=== PATIENT | male | born 1955 | race Caucasian/White ===

== ENCOUNTER 2017-04-30 10:43 | Emergency (ER) | payer MEDICAID, SELFPAY ==
[2017-04-30 10:51] VITALS: BP 158/104; PULSE 129; RESP 20; TEMP 36.5; O2SAT 97; BMI 28.8
--- NOTE | 2017-04-30 12:44 | HMH.EDWEAK ---
ED Disposition Clinical Impression: Neurasthenia, Nausea Disposition: Home, Self-Care Condition on Discharge: Good Prescriptions: Ondansetron [Zofran 8mg ODT] 8 mg PO TID PRN #14 tab PRN Reason: Nausea Referrals: Tessa Henriquez MD [Primary Care Provider] - - Critical Care Critical Care Time: No Attestation: On 04/30/17, the high probability of a clinically significant, sudden or life threatening deterioration of the following system(s) required my full and direct attention, intervention and personal management. The time I documented below is in addition to time spent performing reported procedures but includes the following listed in this critical care notation. Medical Decision Making Vital Signs: 04/30/17 10:51 Temperature 97.7 F Temperature Source Oral Pulse Rate [Right Brachial] 129 H Respiratory Rate 20 Blood Pressure [Right Arm] 158/104 Blood Pressure Mean [Right Arm] 122 Blood Pressure Source [Right Arm] Automatic Cuff Blood Pressure Position [Right Arm] Sitting 02 Sat by Pulse Oximetry 97 Oxygen Delivery Method Room Air Orders (Tests/Meds): ED MEDICATIONS Discontinued Medications Generic Name Dose Route Start Last Admin Trade Name Freq PRN Reason Stop Dose Admin Ondansetron HCl 8 mg 04/30/17 12:43 04/30/17 13:22 Zofran 4mg/2ml Vial IM 04/30/17 12:44 8 mg ONCE ONE Administration - Anurag Inquiry Pt receiving controlled substance: No Anurag was queried for this patient: No Medical Decision Making Narrative: patient has long history greater than 1 month of same sub acute issue, he needs to see neurology in my opinion, doubt further w/u indicated per ED Weakness HPI - General Chief complaint: Weakness Stated complaint: burning in arms nausea poss high bp Mode of Arrival: Ambulatory Limitations: No Limitations Description of Symptoms (Recalled from ER Triage Doc. by RN): bilateral arm burning with nausea. states all symptoms are intermittent. states this has been. ongoing for two months. generalized weakness. - History of Present Illness MD Complaint: focal weakness (patient has 2 month history of same has seen PCP and found deficient in vitamins b12 and d. Gets vitamin po and Im and feels better for a short time. Now has numbness and burningin arms and nausea.) - Related Data Home Medications Medication Instructions Recorded Confirmed Amlodipine Besylate [Amlodipine 10 mg PO DAILY MDD 7.5mg 04/30/17 04/30/17 10mg Tab] Aspirin [Aspirin 81mg chewable 81 mg PO DAILY 04/30/17 04/30/17 tab] Buspirone HCl 7.5 mg PO DAILY 04/30/17 04/30/17 Previous Rx's Medication Instructions Recorded Ondansetron [Zofran 8mg ODT] 8 mg PO TID PRN #14 tab 04/30/17 Allergies Allergy/AdvReac Type Severity Reaction Status Date / Time lisinopril [LISINOPRIL] Allergy Mild Verified 04/30/17 13:20 amoxicillin [From AMOXIL] Allergy Unknown Verified 04/30/17 13:20 [facility] History Medical History: Denies:: Cancer, Diabetes Mellitus Type 1, Diabetes Mellitus Type 2, MRSA Laterality Cases: Bilateral: Other Amputation: No Fractures: No - *Social History Educational Level: Completed High School Smoking Status: Never smoker Alcohol Intake: never - Psychiatric History Expresses thoughts of harming self/others: None Suicide Plan Description: No Plan Review of Systems - Review of Systems Review of systems:: pertinent systems reviewed and negative unless documented below - *Neurologic Reports numbness, Reports tingling/numbness/burning sensations Physical Exam - General General appearance: alert, in no apparent distress - Head Head exam: atraumatic, normocephalic, normal inspection - Eye Eye exam: Present: normal appearance, PERRL, EOMI - ENT ENT exam: Present: normal exam, normal oropharynx, mucous membranes moist, TM's normal bilaterally, normal external ear exam - Neck Neck exam: Present: normal inspection, full ROM, trachea mid
--- NOTE | 2017-04-30 12:47 | ED_ITS ---
ED Disposition Clinical Impression: Neurasthenia, Nausea Disposition: Home, Self-Care Condition on Discharge: Good Prescriptions: Ondansetron [Zofran 8mg ODT] 8 mg PO TID PRN #14 tab PRN Reason: Nausea Referrals: Tessa Henriquez MD [Primary Care Provider] - - Critical Care Critical Care Time: No Attestation: On 04/30/17, the high probability of a clinically significant, sudden or life threatening deterioration of the following system(s) required my full and direct attention, intervention and personal management. The time I documented below is in addition to time spent performing reported procedures but includes the following listed in this critical care notation. Medical Decision Making Vital Signs: 04/30/17 10:51 Temperature 97.7 F Temperature Source Oral Pulse Rate [Right Brachial] 129 H Respiratory Rate 20 Blood Pressure [Right Arm] 158/104 Blood Pressure Mean [Right Arm] 122 Blood Pressure Source [Right Arm] Automatic Cuff Blood Pressure Position [Right Arm] Sitting 02 Sat by Pulse Oximetry 97 Oxygen Delivery Method Room Air Orders (Tests/Meds): ED MEDICATIONS Discontinued Medications Generic Name Dose Route Start Last Admin Trade Name Freq PRN Reason Stop Dose Admin Ondansetron HCl 8 mg 04/30/17 12:43 04/30/17 13:22 Zofran 4mg/2ml Vial IM 04/30/17 12:44 8 mg ONCE ONE Administration - Anurag Inquiry Pt receiving controlled substance: No Anurag was queried for this patient: No Medical Decision Making Narrative: patient has long history greater than 1 month of same sub acute issue, he needs to see neurology in my opinion, doubt further w/u indicated per ED Weakness HPI - General Chief complaint: Weakness Stated complaint: burning in arms nausea poss high bp Mode of Arrival: Ambulatory Limitations: No Limitations Description of Symptoms (Recalled from ER Triage Doc. by RN): bilateral arm burning with nausea. states all symptoms are intermittent. states this has been. ongoing for two months. generalized weakness. - History of Present Illness MD Complaint: focal weakness (patient has 2 month history of same has seen PCP and found deficient in vitamins b12 and d. Gets vitamin po and Im and feels better for a short time. Now has numbness and burningin arms and nausea.) - Related Data Home Medications Medication Instructions Recorded Confirmed Amlodipine Besylate [Amlodipine 10 mg PO DAILY MDD 7.5mg 04/30/17 04/30/17 10mg Tab] Aspirin [Aspirin 81mg chewable 81 mg PO DAILY 04/30/17 04/30/17 tab] Buspirone HCl 7.5 mg PO DAILY 04/30/17 04/30/17 Previous Rx's Medication Instructions Recorded Ondansetron [Zofran 8mg ODT] 8 mg PO TID PRN #14 tab 04/30/17 Allergies Allergy/AdvReac Type Severity Reaction Status Date / Time lisinopril [LISINOPRIL] Allergy Mild Verified 04/30/17 13:20 amoxicillin [From AMOXIL] Allergy Unknown Verified 04/30/17 13:20 [facility] History Medical History: Denies:: Cancer, Diabetes Mellitus Type 1, Diabetes Mellitus Type 2, MRSA Laterality Cases: Bilateral: Other Amputation: No Fractures: No - *Social History Educational Level: Completed High School Smoking Status: Never smoker Alcohol Intake: never -
[2017-04-30 14:28] VITALS: BP 140/87; PULSE 102; RESP 16; O2SAT 98
== END 2017-04-30 14:28 | disposition home or self-care (01) ==
PROVIDERS: Emergency Provider Family Medicine; Family Provider Family Medicine; PCP Family Medicine
DX: F48.8 Other specified nonpsychotic mental disorders (principal)
CPT/HCPCS: 96372; 99282; 99283; J2405

== ENCOUNTER → 2017-09-06 10:10 | Outpatient (CLI) | payer MEDICAID, SELFPAY ==
[2017-09-06 11:00] LABS: Basophils % 0.1 % (0.1-2.0); Eosinophils % 0.1 % (0.1-12.0); Hematocrit 41.6 % (42.0-52.0); Hemoglobin 14.1 g/dL (14.1-18.0); Lymphocytes # 2.5 K/mm3 (0.7-4.5); Lymphocytes % 18.6 K/mm3 (10-50); Mean Corpuscular HGB Conc 33.8 g/dL (31.8-35.4); Mean Corpuscular Hemoglobin 29.8 pg (27.0-31.2); Mean Corpuscular Volume 88.3 fl (80-94); Monocytes # 0.6 K/mm3 (0.1-1.0); Monocytes % 4.8 % (1.7-9.3); Neutrophils # 10.2 K/mm3 (1.8-7.8); Neutrophils % 76.5 % (37.0-80.0); Platelet Count 239 K/mm3 (142-424); Red Blood Count 4.72 M/mm3 (4.60-6.20); Red Cell Distribution Width 13.9 % (11.5-17.5); White Blood Count 13.4 K/mm3 (4.8-10.8)
[2017-09-06 12:40] LABS: Alanine Aminotransferase 32 U/L (12-78); Albumin Level 4.3 gm/dL (3.4-5.0); Alkaline Phosphatase 84 U/L (46-116); Aspartate Amino Transferase 19 U/L (15-37); Bilirubin,Direct 0.2 mg/dL (0.0-0.2); Bilirubin,Indirect 0.3 mg/dL (0.0-0.9); Bilirubin,Total 0.5 mg/dL (0.2-1.0); Total Protein,Serum 7.6 gm/dL (6.4-8.2)
[2017-09-11 15:14] LABS: Testosterone, Total, LC/MS 226.3 ng/dL (264.0-916.0)
== END ==
PROVIDERS: Visit Provider Urology
DX: E29.1 Testicular hypofunction (principal)
CPT/HCPCS: 36415; 80076; 84402; 85025

== ENCOUNTER 2019-11-14 14:25 | Emergency (ER) | payer OTHER, SELFPAY ==
[2019-11-14 14:26] VITALS: BP 156/91; PULSE 78; RESP 18; TEMP 36.8; O2SAT 97; BMI 28.0
--- NOTE | 2019-11-14 14:36 | CT_ITS ---
PROCEDURE: CT ABDOMEN PELVIS WO CON CLINICAL INDICATION: FLANK PAIN Left lower quadrant pain, recently passed kidney stones COMPARISON: ABDPELW/O CT ABD PELVIS W/O CONTRAST from 02/05/2013 TECHNIQUE: Axial images obtained with sagittal and coronal reformats. All CT scans at the facility use one or more dose reduction, viz: automated exposure control, ma/kV adjustment per patient size (including targeted exams where dose is matched to indication, i.e. head), or iterative reconstruction technique. FINDINGS: LOWER THORAX: There are some atelectatic/fibrotic changes in the lung bases. 6 mm nodular opacity is present in the right lung base posteriorly nonspecific. There are coronary artery calcifications noted. ABDOMEN & PELVIS: The liver, gallbladder, spleen, adrenal glands, and pancreas have an unremarkable unenhanced appearance. There are numerous bilateral renal calculi measuring up to 5 mm in the mid polar region on the right and 4 mm in the mid polar region on the left. 12 mm hypodensity right kidney which may be due to a cyst and could be confirmed with ultrasound. 2 cm hypodensity involves the mid aspect of the left kidney. There is mild left hydronephrosis and hydroureter secondary to a 4 mm stone at the ureterovesical junction. There is mild thickening of the urinary bladder possibly due to nondistention. No intestinal obstruction or free air. No evidence of appendicitis or diverticulitis. Prostate gland is slightly enlarged measuring 4.6 cm with some coarse calcification. No acute bony anomalies. IMPRESSION: 1. 4 mm left ureterovesical junction stone with mild left-sided obstructive uropathy. 2. Bilateral nephrolithiasis. 3. Bilateral hypodensities of the kidneys suggesting renal cysts which could be confirmed with ultrasound. Dictated by: Clarence Zamorano MD 11/14/2019 15:07 Electronically signed by Clarence Zamorano MD in [place] 11/14/2019 15:07
[2019-11-14 14:45] LABS: Basophils % 0.4 % (0.1-2.0); Eosinophils # 0.1 K/mm3 (0.0-0.4); Hematocrit 43.5 % (42.0-52.0); Hemoglobin 15.6 g/dL (14.1-18.0); Lymphocytes # 2.8 K/mm3 (0.7-4.5); Lymphocytes % 34.3 % (10-50); Mean Corpuscular HGB Conc 35.9 g/dL (31.8-35.4); Mean Corpuscular Hemoglobin 30.6 pg (27.0-31.2); Mean Corpuscular Volume 85.4 fl (80-94); Monocytes # 0.3 K/mm3 (0.1-1.0); Monocytes % 3.7 % (1.7-9.3); Neutrophils # 4.9 K/mm3 (1.8-7.8); Neutrophils % 60.6 % (37.0-80.0); Platelet Count 201 K/mm3 (142-424); Red Cell Distribution Width 13.7 % (11.5-17.5); White Blood Count 8.1 K/mm3 (4.8-10.8)
[2019-11-14 14:47] LABS: Microscopic, Urine URINE MICROSCOPIC (MICROSCOPIC)
[2019-11-14 14:50] LABS: Alanine Aminotransferase 27 U/L (12-78); Albumin Level 4.9 g/dl (3.5-5.0); Albumin/Globulin Ratio 1.6 (1.1-1.8); Alkaline Phosphatase 98 U/L (38-126); Anion Gap 14.3 mEq/L (5-15); Aspartate Amino Transferase 34 U/L (17-59); Bilirubin,Total 0.7 mg/dl (0.2-1.3); Blood Urea Nitrogen 13 mg/dl (9-20); Carbon Dioxide 27 mmol/L (22.0-30.0); Chloride 102 mmol/L (98-107); Creatinine Clearance Estimated 71 mL/min (50-200); Estimated Glomerular Filt Rate 56 ml/min (>60); GFR (African American) 67 ML/MIN (>60); Globulin 3.1 g/dL (1.3-3.2); Glucose 156 mg/dl (74-100); Lipase 102 U/L (23-300); Potassium 4.3 mmoL/L (3.5-5.1); Sodium 139 mmol/L (136-145)
[2019-11-14 14:51] LABS: Appearance,Urine CLEAR (Clear); Bilirubin,Urine Negative (Negative); Blood, Urine 3+ (Negative); Color,Urine YELLOW (Yellow); Glucose,Urine (UA) Negative (Negative); Ketones,Urine Negative (Negative); Leukocyte Esterase,Urine Negative (Negative); Nitrate,Urine Negative (Negative); Protein,Urine Negative (Negative); Specific Gravity, Urine 1.025 (1.005-1.030); Urobilinogen,Urine 0.2 EU/dl (0.2)
[2019-11-14 14:55] LABS: RBC,Urine 20-50 #/hpf (0-3); Squamous Epithelial Cell,Urine Occasional #/hpf (0-5)
--- NOTE | 2019-11-14 16:16 | HMH.EDABDPAI ---
ED Disposition Clinical Impression: Calculus of kidney Disposition: Home, Self-Care Condition on Discharge: Good Instructions: DI for Acute Abdomen Referrals: Paula Melendrez APRN [Primary Care Provider] - - Critical Care Critical Care Time: No Attestation: On 11/14/19, the high probability of a clinically significant, sudden or life threatening deterioration of the following system(s) required my full and direct attention, intervention and personal management. The time I documented below is in addition to time spent performing reported procedures but includes the following listed in this critical care notation. Medical Decision Making - Medical Records Medical records reviewed: Yes: I reviewed the patient's medical records. - Anurag Inquiry Pt receiving controlled substance: No Vital Signs: 11/14/19 14:26 Temperature 98.3 F Temperature Source Oral Pulse Rate [Right] 78 Respiratory Rate 18 Blood Pressure [Right Arm] 156/91 H Blood Pressure Mean [Right Arm] 112 02 Sat by Pulse Oximetry 97 Oxygen Delivery Method Room Air - Lab Data Lab results reviewed: Yes: I reviewed the patient's lab results. Lab Results 11/14/19 14:34: WBC 8.1, RBC 5.10, Hgb 15.6, Hct 43.5, MCV 85.4, MCH 30.6, MCHC 35.9 H, RDW 13.7, Plt Count 201, MPV 8.0, Neut % (Auto) 60.6, Lymph % (Auto) 34.3, Burke % (Auto) 3.7, Eos % (Auto) 1.0, Baso % (Auto) 0.4, Neut # (Auto) 4.9, Lymph # (Auto) 2.8, Burke # (Auto) 0.3, Eos # (Auto) 0.1, Baso # (Auto) 0.0 11/14/19 14:34: Sodium 139, Potassium 4.3, Chloride 102, Carbon Dioxide 27, Anion Gap 14.3, BUN 13, Creatinine 1.30 H, Estimated Creat Clear 71, Estimated GFR 56 L, Est GFR ( Amer) 67, Glucose 156 H, Calcium 10.0, Total Bilirubin 0.7, AST 34, ALT 27, Alkaline Phosphatase 98, Total Protein 8.0, Albumin 4.9, Globulin 3.1, Albumin/Globulin Ratio 1.6, Lipase 102 11/14/19 14:43: Urine Color Yellow, Urine Appearance Clear, Urine pH 6.0, Ur Specific [place] 1.025, Urine Protein Negative, Urine Glucose (UA) Negative, Urine Ketones Negative, Urine Blood 3+, Urine Nitrate Negative, Urine Bilirubin Negative, Urine Urobilinogen 0.2, Ur Leukocyte Esterase Negative, Urine RBC 20-50, Urine WBC None, Ur Squamous Epith Cells Occasional, Urine Bacteria None Result diagrams: 11/14/19 14:34 11/14/19 14:34 Orders (Tests/Meds): ED MEDICATIONS Discontinued Medications Generic Name Dose Route Start Last Admin Trade Name Gonzalez PRN Reason Stop Dose Admin Sodium Chloride 1,000 mls @ 999 mls/hr 11/14/19 14:45 11/14/19 14:40 Sod Chlor 0.9% 1000ml Bag IV 11/14/19 15:45 999 mls/hr .Q1H1M DEANGELO Administration Ketorolac Tromethamine 30 mg 11/14/19 14:36 11/14/19 14:40 Toradol 30mg/Ml Vial IV 11/14/19 14:37 30 mg ONCE ONE Administration - CT Data CT Scan: Abdomen, Pelvis Time Received: 16:[address] Reviewed: Yes: I have viewed the radiologist's interpretation Preliminary Findings: Normal/NAD (4 mm stone), Abnormal Abdominal Pain HPI - General Chief Complaint: Abdominal Pain Stated Complaint: possible kidney stone Time Seen by Provider: 11/14/19 16:16 Mode of Arrival: Ambulatory Source of Information: Patient Limitations: No Limitations Description of Symptoms (Recalled from ER Triage Doc. by RN): PATIENTS STATES HE DEVELOPED BURNING/PAINFUL URINATION THIS MORNING APPROX 0730. LEFT SIDED FLANK PAIN THAT RADIATES TO LLQ. DENIES NAUSEA/VOMITING. - History of Present Illness HPI narrative: 64-year-old male presents with right flank pain rating around to the groin that started about 730 this morning. He states that he does have a history of kidney stones. Patient states that the pain progressively got worse until he presented here to the emergency department. Patient does rate his pain 8 out of 10 classifies a sharp tearing sensation. He describes no alleviating factors and exacerbating factors include any sort of movement or even laying still. Patient denies any other symp
--- NOTE | 2019-11-14 16:17 | PC.NURSE ---
Dr Jennifer boone
[2019-11-14 16:47] VITALS: BP 108/60; PULSE 80; RESP 18; TEMP 36.8; O2SAT 98
== END 2019-11-14 17:06 | disposition home or self-care (01) ==
PROVIDERS: Emergency Provider Family Medicine; PCP Nurse Practitioner Family
DX: N20.0 Calculus of kidney (principal); Z87.442 Personal history of urinary calculi; E78.5 Hyperlipidemia, unspecified; I10 Essential (primary) hypertension; Z88.8 Allergy status to other drugs, medicaments and biological substances; Z87.891 Personal history of nicotine dependence
CPT/HCPCS: 74176; 80053; 81001; 83690; 85025; 96365; 96375; 99283

== ENCOUNTER → 2021-05-25 09:39 | Outpatient (CLI) | payer MEDICARE, OTHER, SELFPAY | PROVIDERS: PCP Family Medicine; Visit Provider Surgery | DX: Z01.812 Encounter for preprocedural laboratory examination (principal); Z11.52 Encounter for screening for COVID-19; Z12.11 Encounter for screening for malignant neoplasm of colon | CPT/HCPCS: C9803; U0003; U0005 ==

== ENCOUNTER 2021-05-27 07:17 | Day surgery (SDC) | payer MEDICARE, OTHER, SELFPAY ==
[2021-05-23 13:27] VITALS: BMI 28.3
[2021-05-27 07:28] VITALS: BP 163/103; PULSE 100; RESP 18; TEMP 36.7; O2SAT 98
[2021-05-27 07:42] VITALS: O2SAT 97
--- NOTE | 2021-05-27 07:47 | P.PN_ITS ---
[facility] Anesthesia Checklist - Structural Data Admitted From: Home Planned Operative Procedure/s: colonoscopy Consent for Planned Operative Procedure(s) Verified: Yes - Airway Assessment C-Spine Mobility Assessed: Yes TMJ Mobility Assessed: Yes Dentition: Poor Dentition - Neurological Assessment Level of Consciousness: Awake, Alert, Appropriate - Anesthesia Plan Anesthesia Risk discussed: Yes Anesthesia Plan: Verified ASA Class: II Anesthesia Type: MAC [facility] History I have reviewed the patient's past medical history: Yes Medical History: Reports:: Hypertension Denies:: Cancer, Diabetes Mellitus Type 1, Diabetes Mellitus Type 2, Internal Pacemaker, MRSA, Seizures *Have you ever received a pneumonia vaccine?: No *Have you received a flu vaccine this season?: No Anesthesia experience/problems:: none Laterality Cases: Bilateral: Other Other Surgeries: Yes: Appendectomy, Cardiac Catheterization. No: Pacemaker Amputation: No Fractures: No - *Social History Last grade of school completed: High school graduate Smoking Status: Former smoker Tobacco Type: cigarettes Alcohol Intake: never Substance Use Type: denies use *Occupational Status:: retired *Travel in the last 8 weeks: None Family Hx:: Cancer, Heart Attack
[2021-05-27 08:35] VITALS: BP 89/53; PULSE 71; RESP 18; TEMP 36.1; O2SAT 91
--- NOTE | 2021-05-27 08:36 | P.PCN_ITS ---
- Procedure: Date: 05/27/21 Patient Date of :: 1955 Procedure Performed:: Total colonoscopy with numerous polypectomy using snare Indications:: Patient is a 66-year-old male. He has never had previous colonoscopy. He had some constipation and rectal bleeding. He was referred for colonoscopy. Performing Provider:: Jv Chiu MD Referring Provider:: Sheila Henriquez MD Sedation:: MAC sedation Procedure:: Patient was taken to endoscopy procedure room. He was positioned in lateral decubitus position. Adequate intravenous sedation was achieved with anesthesia titration of propofol. Variable stiffness Olympus colonoscope was inserted via the anus. It was advanced to the cecum. There was some undigested vegetable matter throughout the colon which obscured visualization somewhat but adequate visualization was achieved with irrigation and suctioning. Colonoscope was slowly withdrawn through the colon with careful surveillance. Numerous polyps were encountered of various sizes. There were 3 polyps within the ascending colon removed with cold cutting snare. These varied in size from approximately 6 mm to 1 cm. There is a small cecal polyp removed with cold snare. In the proximal transverse colon there was a adenomatous appearing polyp removed with cold snare. In the transverse colon there was a polyp removed with cold snare. Descending colon there were 4 various sized polyps removed with cold snare. In the rectal polyp there was a relatively large flat irregular polyp measuring up to about 15 mm removed with hot snare polypectomy in its entirety. There was a smaller adenomatous appearing polyp removed with hot snare in the rectum as well. Retroflexion was not performed due to polypectomy performed in the re ctum. Colonoscope was withdrawn. Findings:: He had numerous polyps, total of approximately 12 polyps removed. Varied in size from 4 mm to approximately 15 mm. Largest polyp was in the rectum. These all appeared adenomatous. Recommendations:: Given the suboptimal visualization due to undigested vegetable matter in the colon and due to the number of polyps likely repeat colonoscopy 1 year to ensure complete eradication of polyps. Complications:: None immediately apparent Estimated blood obtained (mL): 4
[2021-05-27 08:45] VITALS: BP 95/66; PULSE 63; RESP 18; O2SAT 94
[2021-05-27 08:55] VITALS: BP 121/70; PULSE 65; RESP 18; O2SAT 99
[2021-05-27 09:05] VITALS: BP 121/81; PULSE 56; RESP 18; O2SAT 99
== END 2021-05-27 09:08 | disposition home or self-care (01) ==
LOC: OUTP 07:18
PROVIDERS: PCP Nurse Practitioner Family; Visit Provider Surgery
PROC: 0DJD8ZZ Inspection of Lower Intestinal Tract, Via Natural or Artificial Opening Endoscopic (ICD-10-PCS; principal; 2021-05-27 08:30)
DX: Z12.11 Encounter for screening for malignant neoplasm of colon (principal); K63.5 Polyp of colon; K62.1 Rectal polyp; I10 Essential (primary) hypertension; E78.5 Hyperlipidemia, unspecified; Z82.3 Family history of stroke; Z80.9 Family history of malignant neoplasm, unspecified; Z87.891 Personal history of nicotine dependence; Z90.49 Acquired absence of other specified parts of digestive tract; Z88.1 Allergy status to other antibiotic agents; Z88.8 Allergy status to other drugs, medicaments and biological substances; Z79.899 Other long term (current) drug therapy
CPT/HCPCS: 45385; 88305

== ENCOUNTER 2023-08-29 13:26 | Emergency (ER) | payer MEDICARE, SELFPAY ==
[2023-08-29 13:50] VITALS: BP 188/92; PULSE 102; RESP 19; TEMP 36.8; O2SAT 98; BMI 28.8
--- NOTE | 2023-08-29 14:24 | ED_ITS ---
Discharge Plan Disposition Patient Disposition: Home, Self-Care Condition: Good Prescriptions Prescriptions: No Action metoprolol succinate 50 mg tablet extended release 24 hr 50 mg PO DAILY amlodipine 5 mg tablet 5 mg PO ONCE buspirone 7.5 mg tablet See Rx Instructions .ROUTE .COMPLEX Qty: 60 2RF Dose Instruction: TAKE ONE TABLET BY MOUTH TWICE DAILY Rx Instructions: TAKE ONE TABLET BY MOUTH TWICE DAILY aspirin 81 MG tablet,chewable 81 mg PO DAILY Referrals Follow up/Referrals: Tessa Henriquez MD [Primary Care Provider] - See instructions Activity Restrictions/Add. Instructions Additional Instructions/Restrictions: use afrin with nose bleed- 2 sprays and pinch nose if continues return follow up with pcp Clinical Impressions Clinical Impression: Bleeding nose Instructions Patient Instructions: DI for Nosebleed Discharge ED Provider: Hardeep ([facility])Ramiro [facility] HPI General Stated complaint: nosebleed Mode of Arrival: Ambulatory Source of Information: Patient, Spouse, Parent(s) and EMS Limitations: No Limitations Time Seen by Provider: 08/29/23 14:24 Description of Symptoms (Recalled from Triage Doc. by RN): Pt's symptoms are 2 seperate episodes of nose bleeds. He stated the first episode was last night. He used nasal spray then 2 hours later had a nose bleed, and then another one today. He denies any trauma to his nose. HEENT Symptoms (Recalled from RN notes): Yes Resp Symptoms (Recalled from RN notes): No Skin Symptoms (Recalled from RN notes): No MS Symptoms (Recalled from RN notes): No Functional Status (Recalled from RN notes): n/a History of Present Illness Provider Complaint: 68 yr old male presents for c/o 2 separate episodes of nose bleeds. He stated the first episode was last night. He used nasal spray then 2 hours later had a nose bleed, and then another one today. He denies any trauma to his nose. pt states he was congested from mowing the yard Related Data Home Medications Medication Instructions Recorded Confirmed aspirin 81 mg chewable tablet 81 mg PO DAILY Blood thinner 04/30/17 08/29/23 amlodipine 5 mg tablet 5 mg PO ONCE bp 09/06/17 08/29/23 metoprolol succinate 50 mg 50 mg PO DAILY bp 07/16/18 08/29/23 tablet,extended release 24 hr Previous Rx's Medication Instructions Recorded buspirone 7.5 mg tablet See Rx Instructions .Route 03/02/23 .COMPLEX #60 tabs Allergies Allergy/AdvReac Type Severity Reaction Status Date / Time bisoprolol Allergy Severe Agitated Verified 08/29/23 14:10 lisinopril [LISINOPRIL] Allergy Mild Verified 08/29/23 14:10 amoxicillin [From AMOXIL] Allergy Unknown Verified 08/29/23 14:10 Worker's Comp Is this a Worker's Comp case?: No [facility] Disclaimer: The information contained in this section may have been updated after the patient was seen, as this information can be updated by other users. Social History , [employer]) Smoking Status: Former smoker tobacco type: cigarettes second hand exposure: No alcohol intake: never substance use type: denies use current occupational status: retired Travel in the last 8 weeks: None caffeine: No ROS Obtained: Yes All systems reviewed & no additional complaints except as documented Constitutional Constitutional: Reports system reviewed and no additional complaints, except as documented Eyes Eyes: Reports system reviewed and no additional complaints, except as documented ENT Ears, Nose, Mouth, and Throat: Reports system reviewed and no additional co mplaints, except as documented, Reports as per HPI, Reports epistaxis, Reports nasal congestion and Reports nasal discharge Cardiovascular Cardiovascular: Reports system reviewed and no additional complaints, except as documented Respiratory Respiratory: Reports system reviewed and no additional complaints, except as documented Gastrointestinal Gastrointestingal: Reports system reviewed and no additional complaints, except as documented Genitourinary Male Genitourinary: Reports system reviewed and no additional complaints, except as documented Musculoskeletal Musculoskeletal: Reports system reviewed and no additional complaints, except as documented Neurologic Neurologic: Reports system reviewed and no additional complaints, except as documented Endocrine Endocrine: Reports system reviewed and no additional complaints, except as documented Allergic/Immunologic Allergic/Immunologic: Reports system reviewed and no additional complaints, except as documented Physical Exam General General appearance: alert and in no apparent distress Head Head exam: atraumatic Eye Eye exam: Present normal appearance and PERRL ENT ENT exam: Present normal exam, normal oropharynx, mucous membranes moist and TM's normal bilaterally Respiratory Respiratory exam: Present normal lung sounds bilaterally Cardiovascular Cardiovascular exam: Present regular rate and normal rhythm Neurological Exam Neurological exam: Present alert and oriented X3 Skin Skin exam: Present warm and intact Medical Decision Making Medical Records Medical records reviewed: Yes I reviewed the patient's medical records. Anurag Inquiry Pt receiving controlled substance: No Anurag was queried for this patient: No Vital Signs: 08/29/23 13:50 Temperature 98.2 F Temperature Source Oral Pulse Rate [Right Radial] 102 H Respiratory Rate 19 Blood Pressure [Right Arm] 188/92 H Blood Pressure Mean [Right Arm] 124 Blood Pressure Source [Right Arm] Automatic Cuff Blood Pressure Position [Right Arm] Sitting 02 Sat by Pulse Oximetry 98 Oxygen Delivery Method Room Air
[2023-08-29] MEDS: OXYMETAZOLINE NASAL SPRAY 0.05% 15ML NS (14:35)
[2023-08-29 14:57] VITALS: BP 188/92; PULSE 102; RESP 19; TEMP 36.8; O2SAT 98
== END 2023-08-29 14:57 | disposition home or self-care (01) ==
PROVIDERS: Emergency Provider Nurse Practitioner Family; PCP Family Medicine
DX: R04.0 Epistaxis (principal)
CPT/HCPCS: 99204; 99212; G0463

== ENCOUNTER 2023-08-31 10:36 | Emergency (ER) | payer MEDICARE, SELFPAY ==
[2023-08-31] VITALS (7 sets, daily range): BP systolic 133–185; BP diastolic 96–117; PULSE 89–133; RESP 15–16; TEMP 36.7; O2SAT 95–98; BMI 28.8
[2023-08-31] MEDS: OXYMETAZOLINE NASAL SPRAY 0.05% 15ML NS (10:47)
--- NOTE | 2023-08-31 11:26 | ED_ITS ---
Discharge Plan Disposition Patient Disposition: Home, Self-Care Condition: Good Prescriptions Prescriptions: New clindamycin HCl 300 mg capsule 300 mg PO Q8H 7 Days Qty: 21 0RF No Action metoprolol succinate 50 mg tablet extended release 24 hr 50 mg PO DAILY amlodipine 5 mg tablet 5 mg PO ONCE buspirone 7.5 mg tablet See Rx Instructions .ROUTE .COMPLEX Qty: 60 2RF Dose Instruction: TAKE ONE TABLET BY MOUTH TWICE DAILY Rx Instructions: TAKE ONE TABLET BY MOUTH TWICE DAILY aspirin 81 MG tablet,chewable 81 mg PO DAILY Referrals Follow up/Referrals: Tessa Henriquez MD [Primary Care Provider] - See instructions Daniel Kearney MD [Physician] - See instructions Activity Restrictions/Add. Instructions Additional Instructions/Restrictions: You were seen in the ED today due to nosebleed. Please contact ENT office for follow-up. Take antibiotics as directed. Return to the ED if symptoms worsen or if new concerning symptoms arise. Thank you. Clinical Impressions Clinical Impression: Epistaxis Instructions Patient Instructions: DI for Nosebleed Discharge ED Provider: Sam Toussaint General Adult HPI General Chief complaint: Epistaxis Stated complaint: nose bleed 3 days Time Seen by Provider: 08/31/23 11:11 Mode of Arrival: Ambulatory Source of Information: Patient Limitations: No Limitations Description of Symptoms (Recalled from ER Triage Doc. by RN): pt reports to ED for nasal bleeding. pt states that bleeding has been intermittent for the past 3 days. pt reports using allergy nasal spray 3 days ago and began to have bleeding. pt reports he did use afrin this morning approx 4 am but no relief. History of Present Illness HPI narrative: Patient is a 68-year-old male with history of HTN who presents due to nosebleed. Patient's neighbor is present to help provide history. Patient reports for the past 3 days he has had intermittent right-sided nosebleed. Patient states he had been using prescription nasal spray and bleeding occurred upon waking up 1 morning. Denies any preceding trauma. States he was seen by urgent care and given Afrin. He followed up with his primary care provider and states he was referred to an ENT doctor however has not established care yet. Patient states he used the Afrin earlier this morning however some hours later, again developed nosebleed prompting his visit today. Patient denies any lightheadedness, dizziness, fatigue, headache, visual changes. Denies any significant history of nosebleeds. Related Data Home Medications Medication Instructions Recorded Confirmed aspirin 81 mg chewable tablet 81 mg PO DAILY Blood thinner 04/30/17 08/29/23 amlodipine 5 mg tablet 5 mg PO ONCE bp 09/06/17 08/29/23 metoprolol succinate 50 mg 50 mg PO DAILY bp 07/16/18 08/29/23 tablet,extended release 24 hr Previous Rx's Medication Instructions Recorded buspirone 7.5 mg tablet See Rx Instructions .Route 03/02/23 .COMPLEX #60 tabs clindamycin HCl 300 mg capsule 300 mg PO Q8H 7 days #21 caps 08/31/23 Allergies Allergy/AdvReac Type Severity Reaction Status Date / Time bisoprolol Allergy Severe Agitated Verified 08/29/23 14:10 lisinopril [LISINOPRIL] Allergy Mild Verified 08/29/23 14:10 amoxicillin [From AMOXIL] Allergy Unknown Verified 08/29/23 14:10 [facility] Disclaimer: The information contained in this section may have been updated after the patient was seen, as this information can be updated by other users. Social History , [employer]) Smoking Status: Never smoker second hand exposure: No alcohol intake: never substance use type: denies use current occupational status: retired Travel in the last 8 weeks: None caffeine: No ROS Obtained: Yes All systems reviewed & no additional complaints except as documented Physical Exam General General appearance: alert and in no apparent distress Head Head exam: atraumatic, normocephalic and normal inspection Eye Eye exam: Present normal appearance, PERRL and EOMI ENT ENT exam: Present normal exam, normal oropharynx, mucous membranes moist, TM's normal bilaterally, normal external ear exam and other (Dried blood in right anterior nare and posterior oropharynx. No active bleeding.) Neck Neck exam: Present normal inspection, full ROM and trachea midline; Absent meningismus or lymphadenopathy Chest Chest inspection: Present normal inspection and symmetric chest wall rise; Absent tenderness Respiratory Respiratory exam: Present normal lung sounds bilaterally; Absent respiratory distress Cardiovascular Cardiovascular exam: Present regular rate and normal rhythm; Absent JVD Abdominal Exam Abdominal exam: Present soft and normal bowel sounds; Absent distention, tenderness or guarding Extremities Exam Extremities exam: Present normal inspection, full ROM and normal capillary refill; Absent calf tenderness Back Exam Back exam: Present normal inspection; Absent tenderness Neurological Exam Neurological exam: Present alert and oriented X3 Psychiatric Psychiatric exam: Present normal affect and normal mood Skin Skin exam: Present warm, dry, intact and normal color Lymphatic Lymphatic Findings: no adenopathy Medical Decision Making Anurag Inquiry Pt receiving controlled substance: No Vital Signs: 08/31/23 10:37 08/31/23 11:00 08/31/23 11:30 Temperature 98.0 F Temperature Source Oral Pulse Rate 116 H 114 H Pulse Rate [Left Radial] 133 H Respiratory Rate 15 Blood Pressure 136/96 H 163/117 H Blood Pressure [Right Arm] 185/107 H Blood Pressure Mean 109 128 Blood Pressure Mean [Right Arm] 133 Blood Pressure Source Blood Pressure Position 02 Sat by Pulse Oximetry 98 96 96 Oxygen Delivery Method Room Air Room Air 08/31/23 12:00 08/31/23 12:29 08/31/23 13:31 Temperature Temperature Source Pulse Rate 91 H 89 102 H Pulse Rate [Left Radial] Respiratory Rate Blood Pressure 133/101 H 146/100 H 149/103 H Blood Pressure [Right Arm] Blood Pressure Mean Blood Pressure Mean [Right Arm] Blood Pressure Source Blood Pressure Position 02 Sat by Pulse Oximetry 95 95 96 Oxygen Delivery Method Room Air Room Air Room Air 08/31/23 14:04 Temperature 98.0 F Temperature Source Oral Pulse Rate 102 H Pulse Rate [Left Radial] Respiratory Rate 16 Blood Pressure 143/103 H Blood Pressure [Right Arm] Blood Pressure Mean Blood Pressure Mean [Right Arm] Blood Pressure Source Automatic Cuff Blood Pressure Position Sitting 02 Sat by Pulse Oximetry Oxygen Delivery Method Room Air Lab Data Lab Results 08/31/23 11:38: WBC 9.5, RBC 5.55, Hgb 16.7, Hct 49.6, MCV 89.3, MCH 30.0, MCHC 33.6, RDW 14.1, Plt Count 235, MPV 8.5, Neut % (Auto) 70.8, Lymph % (Auto) 22.9, [place] % (Auto) 4.1, Eos % (Auto) 1.5, Baso % (Auto) 0.7, Neut # (Auto) 6.8, Lymph # (Auto) 2.2, [place] # (Auto) 0.4, Eos # (Auto) 0.1, Baso # (Auto) 0.1, PT 10.4, INR 0.96, Sodium 135 L, Potassium 4.9, Chloride 101, Carbon Dioxide 27, Anion Gap 11.9, BUN 23 H, Creatinine 1.30 H, Estimated Creat Clear 69, Estimated GFR 55 L, Est GFR ( Amer) 67, Glucose 338 H, Calcium 10.1 08/31/23 11:38 08/31/23 11:38 Orders (Tests/Meds): ED MEDICATIONS Discontinued Medications Generic Name Dose Route Start Last Admin Trade Name Freq PRN Reason Stop Dose Admin Lactated Ringer's 1,000 mls @ 999 mls/hr 08/31/23 11:30 08/31/23 11:41 Lactated Ringer's 1000 Ml Bag IV 08/31/23 12:30 999 mls/hr .Q1H1M ONE Administration Oxymetazoline HCl 0 ml 08/31/23 10:46 08/31/23 10:47 Oxymetazoline Nasal [place] 0.05% 15ml NS 08/31/23 10:47 2 ml ONCE ONE Administration Oxymetazoline HCl 1 ml 08/31/23 11:26 08/31/23 11:43 Oxymetazoline Nasal [place] 0.05% 15ml NS 08/31/23 11:27 Not Given ONCE ONE ORDERS Category Date Time Status BMP [Basic Metabolic Panel] Stat Lab 08/31/23 11:38 Completed CBC w/Auto Diff [Complete Blood Count Auto Diff] Stat Lab 08/31/23 11:38 Completed PT INR [Prothrombin Time INR] Stat Lab 08/31/23 11:38 Completed Medical Decision Narrative: In summary, patient is 68-year-old male with history of HTN, evaluated in the emergency department today due to epistaxis. On arrival, patient is tachycardic but hemodynamically stable. On examination, patient has evidence of bleeding with no active bleeding. Differential diagnosis includes but is not limited to anterior epistaxis, posterior epistaxis, coagulopathy, acute blood loss anemia. Afrin given on arrival. Patient given 1 L LR bolus. Workup initiated including CBC, BMP, PT/INR. Labs independently interpreted by me and significant for glucose 338, creatinine 1.30 consistent with baseline. On reevaluation, patient's tachycardia has resolved and he is no longer having epistaxis. However just prior to discharge, patient again began bleeding. Bleeding did not stop despite continuous pressure. Patient requested nasal packing at this time. 4.5 cm Rhino Rocket used for right-sided nasal packing. Patient was observed in the ED for additional 20 minutes with no further bleeding. He is appropriate for discharge at this time. ENT referral provided. Patient prescribed clindamycin. Patient counseled on home care, given strict return precautions and agreeable to plan. Additional history was provided by neighbor. 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 Procedures Epistaxis Control Time Out Performed: Yes Nostril: right Direct Inspection: unable to visualize Clots Removed by: blowing nose Cautery Used: none Device Inserted: nasal tampon (Rhino Rocket) Patient Tolerated Procedure: well Critical Care Critical Care Time Critical Care Time: No
[2023-08-31] MEDS: LACTATED RINGERS 1000ML 1,000 ML 999 ML IV (11:41)
[2023-08-31 11:47] LABS: Basophils # 0.1 K/mm3 (0-0.2); Basophils % 0.7 % (0.1-2.0); Eosinophils # 0.1 K/mm3 (0.0-0.4); Eosinophils % 1.5 % (0.1-12.0); Hematocrit 49.6 % (42.0-52.0); Hemoglobin 16.7 g/dL (14.1-18.0); Lymphocytes # 2.2 K/mm3 (0.7-4.5); Lymphocytes % 22.9 % (10-50); Mean Corpuscular HGB Conc 33.6 g/dL (31.8-35.4); Mean Corpuscular Volume 89.3 fl (80-94); Mean Platelet Volume 8.5 fl (7.4-10.4); Monocytes # 0.4 K/mm3 (0.1-1.0); Monocytes % 4.1 % (1.7-9.3); Neutrophils # 6.8 K/mm3 (1.8-7.8); Neutrophils % 70.8 % (37.0-80.0); Platelet Count 235 K/mm3 (142-424); Red Blood Count 5.55 M/mm3 (4.60-6.20); Red Cell Distribution Width 14.1 % (11.5-17.5); White Blood Count 9.5 K/mm3 (4.8-10.8)
[2023-08-31 12:05] LABS: Chloride 101 mmol/L (98-107); Potassium 4.9 mmoL/L (3.5-5.1); Sodium 135 mmol/L (136-145)
[2023-08-31 12:08] LABS: Blood Urea Nitrogen 23 mg/dl (9-20); Creatinine Clearance Estimated 69 mL/min (50-200); Estimated Glomerular Filt Rate 55 ml/min (>60); GFR (African American) 67 ML/MIN (>60)
[2023-08-31 12:09] LABS: Anion Gap 11.9 mEq/L (5-15); Calcium 10.1 mg/dl (8.4-10.2); Carbon Dioxide 27 mmol/L (22.0-30.0); Glucose 338 mg/dl (74-100)
[2023-08-31 12:27] LABS: INR 0.96 (0.9-1.1); Prothrombin Time 10.4 seconds (10.1-12.5)
== END 2023-08-31 14:07 | disposition home or self-care (01) ==
PROVIDERS: Emergency Provider Student in an Organized Health Care Education/Training Program; PCP Family Medicine
DX: R04.0 Epistaxis (principal)
CPT/HCPCS: 80048; 85025; 85610

== ENCOUNTER 2023-08-31 15:26 | Emergency (ER) | payer MEDICARE, SELFPAY ==
[2023-08-31] VITALS (8 sets, daily range): BP systolic 144–167; BP diastolic 89–106; PULSE 80–120; RESP 18; TEMP 36.6; O2SAT 94–98; BMI 28.8
--- NOTE | 2023-08-31 15:36 | ED_ITS ---
Discharge Plan Disposition Patient Disposition: Home, Self-Care Chief Complaint: Epistaxis Prescriptions Prescriptions: No Action metoprolol succinate 50 mg tablet extended release 24 hr 50 mg PO DAILY amlodipine 5 mg tablet 5 mg PO ONCE buspirone 7.5 mg tablet See Rx Instructions .ROUTE .COMPLEX Qty: 60 2RF Dose Instruction: TAKE ONE TABLET BY MOUTH TWICE DAILY Rx Instructions: TAKE ONE TABLET BY MOUTH TWICE DAILY aspirin 81 MG tablet,chewable 81 mg PO DAILY clindamycin HCl 300 mg capsule 300 mg PO Q8H 7 Days Qty: 21 0RF Referrals Follow up/Referrals: Tessa Henriquez MD [Primary Care Provider] - See instructions Activity Restrictions/Add. Instructions Additional Instructions/Restrictions: 1. Vaseline applied to both nostrils externally with your finger just before bed 2. Wear nose clip at all times 3. Do not blow nose, sniff, snort, bend over, or engage in other activities that will raise her blood pressure or the pressure in your head 4. If you begin bleeding again, blow clots out, put Afrin in both sides of your nose, plug your nose with the nose plug. 5. Hold your aspirin for another 5 days. Call your family doctor to establish care for this visit to the emergency department and schedule follow-up within 48 hours to ensure improvement. If you have any worsening of your condition or any other concerning signs or symptoms, return to the emergency department or your primary care doctor for further evaluation. Clinical Impressions Clinical Impression: Acute anterior epistaxis Instructions Patient Instructions: DI for Nosebleed Discharge ED Provider: Andrew Ospina General Adult HPI General Chief complaint: Epistaxis Stated complaint: nose bleed Time Seen by Provider: 08/31/23 15:33 Mode of Arrival: Ambulatory Source of Information: Patient Limitations: No Limitations Description of Symptoms (Recalled from ER Triage Doc. by RN): Patient returns to the er stating that when he got home his nose began bleeding again. History of Present Illness HPI narrative: Please note that above description of symptoms, in this electronic medical record under categorization of recalled from ER triage doctor by RN are reflective of an initial nursing assessment, however, is not reflective of my full history and physical exam that was personally taken and clarified. Consequentially, this preceding description of symptoms, which may include the patient's categorized chief complaint in the EMR, do not reflect my personal clinical impression, and the ultimate description of history of present illness and patient stated complaints should be deferred to this section of the note. Unless stated otherwise or congruent with this section of the note, additional signs, symptoms, or incongruence should be interpreted as inaccurate with my clinical impression. Related Data Home Medications Medication Instructions Recorded Confirmed aspirin 81 mg chewable tablet 81 mg PO DAILY Blood thinner 04/30/17 08/29/23 amlodipine 5 mg tablet 5 mg PO ONCE bp 09/06/17 08/29/23 metoprolol succinate 50 mg 50 mg PO DAILY bp 07/16/18 08/29/23 tablet,extended release 24 hr Previous Rx's Medication Instructions Recorded buspirone 7.5 mg tablet See Rx Instructions .Route 03/02/23 .COMPLEX #60 tabs clindamycin HCl 300 mg capsule 300 mg PO Q8H 7 days #21 caps 08/31/23 Allergies Allergy/AdvReac Type Severity Reaction Status Date / Time bisoprolol Allergy Severe Agitated Verified 08/29/23 14:10 lisinopril [LISINOPRIL] Allergy Mild Verified 08/29/23 14:10 amoxicillin [From AMOXIL] Allergy Unknown Verified 08/29/23 14:10 [facility] Disclaimer: The information contained in this section may have been updated after the patient was seen, as this information can be updated by other users. Social History , [employer]) Smoking Status: Unknown if ever smoked second hand exposure: No alcohol intake: never substance use type: denies use current occupational status: retired Travel in the last 8 weeks: None caffeine: No ROS Obtained: Yes All systems reviewed & no additional complaints except as documented Physical Exam General General appearance: alert and in no apparent distress Head Head exam: atraumatic and normocephalic Eye Eye exam: Present normal appearance, PERRL and EOMI ENT ENT exam: Present mucous membranes moist and other (Patient has blood running down the back of his throat from his right nare. Nasal packing in place right- sided) Neck Neck exam: Present normal inspection, full ROM and trachea midline Respiratory Respiratory exam: Absent respiratory distress, wheezes, stridor, accessory muscle use or prolonged expiratory phase Cardiovascular Cardiovascular exam: Present normal rhythm Abdominal Exam Abdominal exam: Present soft; Absent distention, tenderness, guarding, rebound or rigidity Extremities Exam Extremities exam: Absent edema Neurological Exam Neurological exam: Present alert, oriented X3, CN II-XII intact and normal gait; Absent motor sensory deficit Skin Skin exam: Present warm and dry; Absent diaphoresis or erythema Medical Decision Making Medical Records Medical records reviewed: Yes I reviewed the patient's medical records. Anurag Inquiry Pt receiving controlled substance: No Anurag was queried for this patient: No Vital Signs: 08/31/23 15:27 08/31/23 15:30 08/31/23 16:02 Temperature 97.9 F Temperature Source Oral Pulse Rate 119 H 120 H Pulse Rate [Radial] 119 H Respiratory Rate 18 Blood Pressure 167/106 H 144/89 H Blood Pressure [Right Arm] 167/106 H Blood Pressure Mean [Right Arm] 126 Blood Pressure Source [Right Arm] Automatic Cuff Blood Pressure Position [Right Arm] Sitting 02 Sat by Pulse Oximetry 96 96 96 Oxygen Delivery Method Room Air Room Air Room Air 08/31/23 16:30 08/31/23 17:00 Temperature Temperature Source Pulse Rate 113 H 101 H Pulse Rate [Radial] Respiratory Rate Blood Pressure 148/104 H 155/106 H Blood Pressure [Right Arm] Blood Pressure Mean [Right Arm] Blood Pressure Source [Right Arm] Blood Pressure Position [Right Arm] 02 Sat by Pulse Oximetry 94 L 98 Oxygen Delivery Method Room Air Room Air Orders (Tests/Meds): ED MEDICATIONS Discontinued Medications Generic Name Dose Route Start Last Admin Trade Name Freq PRN Reason Stop Dose Admin Metoprolol Tartrate 50 mg 08/31/23 15:55 08/31/23 16:57 Metoprolol Tartrate 50mg Tablet PO 08/31/23 15:56 50 mg ONCE ONE Administration Oxymetazoline HCl 2 ml 08/31/23 15:44 08/31/23 15:50 Oxymetazoline Nasal [place] 0.05% 15ml NS 08/31/23 15:45 2 ml ONCE ONE Administration Medical Decision Narrative: 68-year-old male no relevant medical history presenting with epistaxis. Patient is at epistaxis on and off for the last 2 days. Was seen in the emergency department earlier today, packed on the right side. Continued to bleed through this. Came back for further evaluation. No lightheadedness, chest pain, nausea or vomiting, or any other concerns. History was obtained via conversation with patient and family. On arrival, patient hemodynamically stable, alert, oriented x4, appropriate, GCS 15, moving all extremities spontaneously, pupils equal and reactive to light. Full physical exam performed and significant for well- appearing male in no acute distress he does have blood running down the right side of his throat. Nasal packing in place on the right side. Differential includes anterior epistaxis, among others. Patient was given 50 mg p.o. metoprolol for hypertensive management for symptomatic management and correction of underlying abnormalities. Patient also given topical Afrin and nose clip for 60 minutes. On reevaluation, patient no longer bleeding. Nose clip was replaced as patient kept sniffing and snorting to clear his throat. He was instructed not to do this. Patient no longer bleeding at this time down his throat either. Conversation had with patient regarding home-going and precautions, he voiced his understanding. Also voiced understanding of not taking aspirin for 7 days and putting Vaseline around his nostrils. Because patient at baseline without signs or symptoms of clinical decompensation, deemed appropriate for discharge. Results were relayed to patient who voiced understanding and were agreeable to outpatient management and follow up. I discussed my clinical impression with patient and answered all questions. At this time, the evidence for any other entities in the differential is insufficient to warrant any further testing or ED observation. This was explained as well. Advisory was given that persistent or worsening symptoms require further evaluation. I confirmed the understanding of this discussion. Critical Care Critical Care Time Critical Care Time: No
[2023-08-31] MEDS: OXYMETAZOLINE NASAL SPRAY 0.05% 15ML 2 ML NS (15:50)
[2023-08-31] MEDS: METOPROLOL TARTRATE 50MG TABLET 50 MG PO (16:57)
--- NOTE | 2023-08-31 17:08 | PC.NURSE ---
Dr. Ospina at , pt rhino rocket taken out of nostril, pt blew nose and afrin administered, nose plug placed
--- NOTE | 2023-08-31 17:24 | PC.NURSE ---
PT AND VISITOR WAS GIVEN A WARM BLANKET TURNED LIGHT OFF SO THEY COULD TAKE A NAP. NO OTHER NEEDS AT THIS TIME,CALL LIGHT IN REACH
== END 2023-08-31 18:10 | disposition home or self-care (01) ==
PROVIDERS: Emergency Provider Emergency Medicine; PCP Family Medicine
DX: R04.0 Epistaxis (principal)
CPT/HCPCS: 80048; 85025; 85610; 99283

== ENCOUNTER 2024-03-17 07:45 | Outpatient (CLI) | payer MEDICARE, SELFPAY ==
--- NOTE | 2024-03-17 07:50 | US_ITS ---
FINAL REPORT TECHNIQUE: Limited sonographic imaging of the left upper quadrant was obtained. CLINICAL HISTORY: SOFT TISSUE PALP AREA LUQ X 2 YRS-- NO PAIN FINDINGS: There is a 4.5 cm ovoid, hypoechoic nodule in the area of interest consistent with lipoma. IMPRESSION: Findings consistent with lipoma. Reviewed, Interpreted and Dictated by Aurelio Drew MD Transcribed by Yasmin Gastelum Authenticated and [facility]
== END 2024-03-17 23:59 | disposition home or self-care (01) ==
PROVIDERS: PCP Family Medicine; Visit Provider Nurse Practitioner Family
DX: K46.9 Unspecified abdominal hernia without obstruction or gangrene (principal)
CPT/HCPCS: 76705

== ENCOUNTER 2024-05-30 12:53 | Emergency (ER) | payer MEDICARE, SELFPAY ==
[2024-05-30 12:59] VITALS: BP 168/100; PULSE 107; RESP 16; TEMP 36.7; O2SAT 95; BMI 27.9
[2024-05-30 14:09] VITALS: BP 153/95; PULSE 101; RESP 16; O2SAT 98
--- NOTE | 2024-05-30 14:34 | ED_ITS ---
<Statement entered by Marisol North MD - 06/14/24 15:06> I was consulted by the SARAH, and we discussed the complexity of problems being addressed. I approved the treatment and management plan for this patient's care in the emergency department, thus performing a substantive portion of the medical decision making. Marisol North MD Discharge Plan Disposition Patient Disposition: Home, Self-Care Condition: Good Chief Complaint: PAIN Prescriptions Prescriptions: No Action metoprolol succinate 50 mg tablet extended release 24 hr 50 mg PO DAILY amlodipine 5 mg tablet 5 mg PO ONCE buspirone 7.5 mg tablet See Rx Instructions .ROUTE .COMPLEX Qty: 60 2RF Dose Instruction: TAKE ONE TABLET BY MOUTH TWICE DAILY Rx Instructions: TAKE ONE TABLET BY MOUTH TWICE DAILY aspirin 81 MG tablet,chewable 81 mg PO DAILY Referrals Follow up/Referrals: Tessa Henriquez MD [Primary Care Provider] - See instructions Activity Restrictions/Add. Instructions Additional Instructions/Restrictions: Return to the emergency department any worsening signs or symptoms, continue take all medications as prescribed. Will call you with the results of urine/STI panel if positive. Clinical Impressions Clinical Impression: Neurasthenia, Neuropathy, T2DM (type 2 diabetes mellitus) Instructions Patient Instructions: DI for Numbness/Tingling Print Language Print Language: [place] Discharge ED Provider: Melissa Waddell General Adult HPI General Chief complaint: PAIN Stated complaint: burning sensation in legs, arms, hand and feet Time Seen by Provider: 05/30/24 14:19 Mode of Arrival: Ambulatory Source of Information: Patient Limitations: No Limitations Description of Symptoms (Recalled from ER Triage Doc. by RN): Patient states he has been dealing with burning sensations in his hands and feet. States he has had this concern x2 months. States providers are unable to diagnose it. States it started two months ago after a kidney stone. Denies any exacerbation. States, I'm just tired of fooling with it. . History of Present Illness HPI narrative: 69-year-old male presents to the emergency department with bilateral hands and feet numbness tingling and burning , he states this waxes and wanes has been going on for the last 2 months, he initially attributes this to having sex with this woman , he admits to burning urinary frequency 2 months ago with sounds like he was treated at outside facility/PCPs office and dysuria improved however the neuropathy persisted after the event. He was told he had sugars , and has been treated for what sounds like type 2 diabetes he has been on metformin, now on Jardiance for his type 2 diabetes, he denies any fever chills chest pain shortness of breath nausea vomiting constipation diarrhea, he states that the paresthesias wax and wane, he denies any weight loss, denies any rashes, denies any urethral discharge, denies any lesions, denies any visual disturbance, denies any neck or back pain, or any other radicular type symptomatology, he is a former smoker, denies any other alcohol or drug use, other past medical history consistent with hypertension, anxiety/depression, he is on Cymbalta for his neuropathy, hyperlipidemia, treat vitals unremarkable. Onset (ago): month(s) Related Data Home Medications ?Medication ?Instructions ?Recorded ?Confirmed aspirin 81 mg chewable tablet 81 mg PO DAILY Blood thinner 04/30/17 09/05/23 amlodipine 5 mg tablet 5 mg PO ONCE bp 09/06/17 09/05/23 metoprolol succinate 50 mg 50 mg PO DAILY bp 07/16/18 09/05/23 tablet,extended release 24 hr Previous Rx's ?Medication ?Instructions ?Recorded buspirone 7.5 mg tablet See Rx Instructions .Route 03/02/23 .COMPLEX #60 tabs Allergies Allergy/AdvReac Type Severity Reaction Status Date / Time bisoprolol Allergy Severe Agitated Verified 05/30/24 13:05 lisinopril (LISINOPRIL) Allergy Mild Unknown Verified 05/30/24 13:05 allergy reaction amoxicillin (From AMOXIL) Allergy Unknown Unknown Verified 05/30/24 13:05 allergy reaction PFSH [facility] Disclaimer: The information contained in this section may have been updated after the patient was seen, as this information can be updated by other users. Social History Smoking Status: Never smoker second hand exposure: No alcohol intake: never substance use type: denies use current occupational status: retired Travel in the last 8 weeks: None caffeine: No Have you lived/traveled outside [place] in past 30 days?: No Contact w/someone who lives/traveled outside [place] past 30 days?: No Exposure to someone with infectious disease in past 14 days?: No Do you have a fever (greater than 100.4 F or 38 C)?: No Have you tested positive for COVID-19: No Exposed to someone with COVID-19 in past 14 days?: No Do you have a sore throat?: No Do you have a cough?: No Do you have any weakness?: No Do you have any diarrhea?: No Are you experiencing any unusual bleeding?: No Do you have any muscle aches/pain?: No Do you have any abdominal pain?: No Are you experiencing loss of taste or smell?: No Other Medical History Have you received the Flu Vaccine for this season: No Have you received the Pneumonia Vaccine: No ROS Obtained: Yes All systems reviewed & no additional complaints except as documented Physical Exam General General appearance: alert and in no apparent distress Head Head exam: atraumatic and normocephalic Eye Eye exam: Present PERRL and EOMI ENT ENT exam: Present mucous membranes moist Neck Neck exam: Present normal inspection Chest Chest inspection: Present normal inspection and symmetric chest wall rise Respiratory Respiratory exam: Present normal lung sounds bilaterally; Absent respiratory distress Cardiovascular Cardiovascular exam: Present regular rate and normal rhythm Abdominal Exam Abdominal exam: Present soft; Absent tenderness Extremities Exam Extremities exam: Present normal inspection Neurological Exam Neurological exam: Present alert and oriented X3 Psychiatric Psychiatric exam: Present normal affect Skin Skin exam: Present warm and dry Medical Decision Making Medical Records Medical records reviewed: Yes I reviewed the patient's medical records. Screening: Per USPSTF and CDC recommendations, given the prevalence of disease in our region, it is our hospital?s policy to screen for HIV and viral Hepatitis for all patients aged 18 and over and those with ongoing risk factors. Anurag Inquiry Pt receiving controlled substance: No Anurag was queried for this patient: No Vital Signs: 05/30/24 12:59 05/30/24 14:09 Temperature 98.0 F Temperature Source Oral Pulse Rate 101 H Pulse Rate [Radial] 107 H Respiratory Rate 16 16 Blood Pressure 153/95 H Blood Pressure [Left Arm] 168/100 H Blood Pressure Mean [Left Arm] 122 Blood Pressure Source [Left Arm] Automatic Cuff Blood Pressure Position Sitting Blood Pressure Position [Left Arm] Sitting 02 Sat by Pulse Oximetry 95 98 Oxygen Delivery Method Room Air Room Air Lab Data Lab results reviewed: Yes I reviewed the patient's lab results. Lab Results 05/30/24 14:11: Urine Color Yellow, Urine Appearance Clear, Urine pH 6.0, Ur Specific [place] 1.010, Urine Protein Negative, Urine Glucose (UA) 3+, Urine Ketones Negative, Urine Blood Negative, Urine Nitrate Negative, Urine Bilirubin Negative, Urine Urobilinogen 0.2, Ur Leukocyte Esterase Negative, Urine RBC None, Urine WBC Occasional, Ur Squamous Epith Cells None, Urine Bacteria Trace 05/30/24 14:54: WBC 7.8, RBC 5.28, Hgb 15.6, Hct 45.3, MCV 85.8, MCH 29.5, MCHC 34.4, RDW 12.8, Plt Count 250, MPV 10.3, Neut % (Auto) 57.3, Lymph % (Auto) 33.7, [place] % (Auto) 5.9, Eos % (Auto) 2.2, Baso % (Auto) 0.8, Neut # (Auto) 4.5, Lymph # (Auto) 2.6, [place] # (Auto) 0.5, Eos # (Auto) 0.2, Baso # (Auto) 0.1, Sodium 138, Potassium 4.7, Chloride 104, Carbon Dioxide 21 L, Anion Gap 17.7 H, BUN 23 H, Creatinine 1.60 H, Estimated Creat Clear 55, Estimated GFR 43 L, Est GFR ( Amer) 52 L, Glucose 134 H, Hemoglobin A1c 6.7 H, Calcium 9.9, Total Bilirubin 0.7, AST 47, ALT 41, Alkaline Phosphatase 70, Total Protein 7.7, A lbumin 5.4 H, Globulin 2.3, Albumin/Globulin Ratio 2.3 H 05/30/24 14:54 05/30/24 14:54 Orders (Tests/Meds): ORDERS Category Date Time Status Complete Blood Count Auto Diff Stat Lab 05/30/24 14:54 Completed Comprehensive Metabolic Panel Stat Lab 05/30/24 14:54 Completed HIV Combo Stat Lab 05/30/24 14:54 Received Hemoglobin A1C Stat Lab 05/30/24 14:54 Completed Hepatitis C Ab Qual. W/ RFX Stat Lab 05/30/24 14:54 Received Urinalysis and Microscopic Stat Lab 05/30/24 14:11 Completed Medical Decision Narrative: 69-year-old male presents to the emergency department with neuropathy of the bilateral lower and upper extremities differential diagnose in, not limited to, diabetic polyneuropathy, pathic polyneuropathy, disseminated STD infection, electrolyte disturbance, other peripheral nerve entrapment. I discussed patient case with infusion Will obtain basic laboratory studies, A1c level, urinalysis, urine gonorrhea and chlamydia nucleotide antigen. CBC unremarkable. Urinalysis grossly unremarkable Reviewed the patient's CMP, BUN is minimally elevated at 23, creatinine is elevated 1.6, GFR is 43, A1c is 6.7. I discussed the results with the patient at the bedside patient is in agreement with the current discharge plan/treatment plan will follow-up with PCP for possible EMG/nerve conduction study, he will continue take all medication as prescribed, I will call patient with results of STD panel, patient will continue to take Lyrica, return to the emerged part with any worsening signs or symptoms, I think more by type 2 diabetes polyneuropathy rather than any other type of neuropathy at this time. Patient voiced understand agree with current treatment plan/discharge plan. Will follow-up with PCP as directed. Critical Care Critical Care Time Critical Care Time: No
[2024-05-30 15:00] LABS: Microscopic, Urine URINE MICROSCOPIC (MICROSCOPIC)
[2024-05-30 15:03] LABS: Basophils # 0.1 K/mm3 (0-0.2); Basophils % 0.8 % (0.1-2.0); Eosinophils # 0.2 K/mm3 (0.0-0.4); Eosinophils % 2.2 % (0.1-12.0); Hematocrit 45.3 % (42.0-52.0); Hemoglobin 15.6 g/dL (14.1-18.0); Lymphocytes # 2.6 K/mm3 (0.7-4.5); Lymphocytes % 33.7 % (10-50); Mean Corpuscular HGB Conc 34.4 g/dL (31.8-35.4); Mean Corpuscular Hemoglobin 29.5 pg (27.0-31.2); Mean Corpuscular Volume 85.8 fl (80-94); Mean Platelet Volume 10.3 fl (7.4-10.4); Monocytes # 0.5 K/mm3 (0.1-1.0); Monocytes % 5.9 % (1.7-9.3); Neutrophils # 4.5 K/mm3 (1.8-7.8); Neutrophils % 57.3 % (37.0-80.0); Platelet Count 250 K/mm3 (142-424); Red Blood Count 5.28 M/mm3 (4.60-6.20); Red Cell Distribution Width 12.8 % (11.5-17.5); White Blood Count 7.8 K/mm3 (4.8-10.8)
[2024-05-30 15:05] LABS: Appearance,Urine CLEAR (Clear); Bilirubin,Urine Negative (Negative); Blood, Urine Negative (Negative); Color,Urine YELLOW (Yellow); Glucose,Urine (UA) 3+ (Negative); Ketones,Urine Negative (Negative); Leukocyte Esterase,Urine Negative (Negative); Nitrate,Urine Negative (Negative); Protein,Urine Negative (Negative); Urobilinogen,Urine 0.2 EU/dl (0.2)
[2024-05-30 15:13] LABS: Alanine Aminotransferase 41 U/L (12-78); Albumin Level 5.4 g/dl (3.5-5.0); Albumin/Globulin Ratio 2.3 (1.1-1.8); Alkaline Phosphatase 70 U/L (38-126); Anion Gap 17.7 mEq/L (5-15); Aspartate Amino Transferase 47 U/L (17-59); Bilirubin,Total 0.7 mg/dl (0.2-1.3); Blood Urea Nitrogen 23 mg/dl (9-20); Calcium 9.9 mg/dl (8.4-10.2); Carbon Dioxide 21 mmol/L (22.0-30.0); Chloride 104 mmol/L (98-107); Creatinine Clearance Estimated 55 mL/min (50-200); Estimated Glomerular Filt Rate 43 ml/min (>60); GFR (African American) 52 ML/MIN (>60); Globulin 2.3 g/dL (1.3-3.2); Glucose 134 mg/dl (74-100); Potassium 4.7 mmoL/L (3.5-5.1); Sodium 138 mmol/L (136-145); Total Protein,Serum 7.7 g/dl (6.3-8.2)
[2024-05-30 15:47] LABS: Bacteria,Urine Trace /lpf; WBC,Urine Occasional #/hpf (0-3)
--- NOTE | 2024-05-30 16:00 | PC.NURSE ---
call made to lab about status updates of blood work.
[2024-05-30 16:01] LABS: Hemoglobin A1C 6.7 % (4.0-6.0)
[2024-05-30 16:15] VITALS: BP 128/78; PULSE 72; RESP 16; TEMP 36.7
[2024-05-30 16:16] LABS: HIV Combo NEGATIVE (Negative)
[2024-05-30 16:25] LABS: Hepatitis C Ab Qual. W/ RFX NEGATIVE (Negative)
[2024-06-02 21:08] LABS: Neisseria gonorrhoeae, NAA Negative (Negative)
== END 2024-05-30 16:15 | disposition home or self-care (01) ==
PROVIDERS: Physician Assistant; Emergency Provider Emergency Medicine; PCP Family Medicine
DX: E11.9 Type 2 diabetes mellitus without complications (principal); F48.8 Other specified nonpsychotic mental disorders; G62.9 Polyneuropathy, unspecified; R20.2 Paresthesia of skin; Z79.4 Long term (current) use of insulin
CPT/HCPCS: 80053; 81001; 83036; 85025; 86803; 87389; 87491; 87591; 99283

== ENCOUNTER 2024-08-01 14:21 | Outpatient (CLI) | payer MEDICARE, MEDICAID, SELFPAY ==
--- NOTE | 2024-08-01 14:26 | US_ITS ---
FINAL REPORT CLINICAL HISTORY: RIGHT GROIN PAIN FINDINGS: Limited sonographic images of the right groin were obtained. There is no evidence of adenopathy. No obvious hernia is identified. No fluid collection or mass is seen. IMPRESSION: No mass or fluid collection. Reviewed, Interpreted and Dictated by Lila Venegas MD Transcribed by Renee Galvez Authenticated and [facility]
--- NOTE | 2024-08-01 14:26 | US_ITS ---
FINAL REPORT CLINICAL HISTORY: RIGHT TESTICULAR PAIN FINDINGS: SCROTAL ULTRASOUND Testes have a homogeneous architecture. No masses are seen. Fluid is seen inferior to the right testes, likely small loculated hydrocele. Moderate sized bilateral varicoceles are identified. Epididymal structures are unremarkable. IMPRESSION: No testicular mass. Bilateral varicoceles. Small loculated right hydrocele. Reviewed, Interpreted and Dictated by Lila Venegas MD Transcribed by Renee Galvez Authenticated and [facility]
== END 2024-08-01 23:59 | disposition home or self-care (01) ==
PROVIDERS: PCP Family Medicine; Visit Provider Nurse Practitioner
DX: N50.811 Right testicular pain (principal)
CPT/HCPCS: 76870; 76882